=== PATIENT | female | born 1955 | race Hispanic/Latino ===

== ENCOUNTER 2016-03-15 10:41 | Emergency (ER) | payer OTHER ==
[2016-03-15] MEDS ORDERED: KETOROLAC 60 MG/2 ML VIAL IM ONE (12:09)
[2016-03-15] MEDS ORDERED: ORPHENADRINE 60 MG/2 ML AMP ONE (12:09)
== END 2016-03-15 14:37 | disposition home or self-care (01) ==
LOC: ER 10:41
DX: M54.5 Low back pain (principal); Z79.899 Other long term (current) drug therapy
CPT/HCPCS: 72100; 72220; 81003; 96372